=== PATIENT | male | born 1975 | race Two or more races ===

== ENCOUNTER 2022-12-05 12:11 | Emergency (ER) | payer BC, OTHER ==
[~2022-12-05] VITALS: Ht 162.6 cm; Wt 96.4 kg
[2022-12-05 12:25] VITALS: BP 139/96
[2022-12-05] MEDS ORDERED: NEOMYCIN-BACITRACIN-POLYM UNITDOSE PKG TOP OINT TOP ONE (14:15)
== END 2022-12-05 14:29 | disposition home or self-care (01) ==
LOC: ER 12:11
DX: S46.912A Strain of unspecified muscle, fascia and tendon at shoulder and upper arm level, left arm, initial encounter (principal); S66.912A Strain of unspecified muscle, fascia and tendon at wrist and hand level, left hand, initial encounter; S66.812A Strain of other specified muscles, fascia and tendons at wrist and hand level, left hand, initial encounter; R07.89 Other chest pain; V49.49XA Driver injured in collision with other motor vehicles in traffic accident, initial encounter; Y93.89 Activity, other specified; Y92.411 Interstate highway as the place of occurrence of the external cause; Y99.8 Other external cause status
CPT/HCPCS: 71045; 73030; 73080; 73130

== ENCOUNTER 2024-02-11 09:47 | Inpatient (IN) | payer BC, OTHER ==
[~2024-02-11] VITALS: Ht 167.6 cm; Wt 96.0 kg
[~2024-02-11 09:47] MED LIST: METO-289 PO; PANT40TA2 PO
[2024-02-11 11:29] LABS: Basophils # (auto) 0 10 ^3/uL (0-0.2); Basophils % (auto) 0.5 % (0.0-2.0); Eosinophils # (auto) 0.2 10 ^3/uL (0-0.8); Eosinophils % (auto) 2.6 % (0.0-7.0); Hemoglobin 15.1 g/dL (13.5-17.5); Lymphocytes # (auto) 2.1 10 ^3/uL (0.4-5.4); Mean Corpuscular Hemoglobin 29.3 pg (28.0-32.0); Mean Corpuscular Hgb Conc. 33.6 g/dL (32.0-36.0); Mean Corpuscular Volume 87.2 fL (80.0-100.0); Monocytes # (auto) 0.6 10 ^3/uL (0-1.3); Monocytes % (auto) 8.3 % (0.0-12.0); Neutrophils # (auto) 4.7 10 ^3/uL (1.6-8.6); Neutrophils % (auto) 61.6 % (37.0-80.0); Nucleated Red Blood Cells % 0.1 %; Red Blood Cells 5.16 10^6/uL (4.5-5.90); Red Cell Distribution Width 16.4 % (11.8-14.3); White Blood Cell 7.6 10^3/uL (4.4-10.8)
[2024-02-11 11:40] LABS: Chloride 112 mmol/L (98-107); Sodium 138 mmol/L (136-145)
[2024-02-11 11:41] LABS: Anion Gap 5 (5-15); Carbon Dioxide 21 mmol/L (20-30)
[2024-02-11 11:42] LABS: Calcium 9.9 mg/dL (8.5-10.1)
[2024-02-11 11:46] LABS: Glucose 129 mg/dL (74-106)
[2024-02-11 11:47] LABS: BUN/Creatinine Ratio 16.7 (10.0-20.0); Blood Urea Nitrogen 15 mg/dL (9-23)
[2024-02-11 11:51] LABS: INR 1.06 (0.9-1.15); Partial Thromboplastin Time 26.5 SEC (24.5-34.5); Prothrombin Time 11.2 sec (9.3-11.8)
[2024-02-11] MEDS ORDERED: MORPHINE SULFATE INJ 2 MG/ml SYRG IV PRN ×2 (14:30)
[2024-02-11] MEDS ORDERED: DEXTROSE (50%) 50ML SYRG IV PRN (14:30)
[2024-02-11] MEDS ORDERED: NITROGLYCERIN 0.4 MG SL TAB SL PRN (14:30)
[2024-02-11] MEDS ORDERED: DOCUSATE SOD 100 MG CAP PO PRN (14:30)
[2024-02-11] MEDS ORDERED: ONDANSETRON HCL 4 MG/2 ML VIAL IV PRN (14:30)
[2024-02-11] MEDS: SODIUM CHLORIDE 0.9% 1,000 ML IV SCH (14:30)
[2024-02-11] MEDS: ACCU-CHEK COMFORT CURVE STRIP VI SCH (17:00)
[2024-02-11] MEDS: InsuLIN REG 1unit/0.01ml Soln (100units/ml) SC SCH ×2 (17:00→22:00)
[2024-02-11] MEDS: PANTOPRAZOLE 40 MG/10 ML VIAL INJ IV ONE (17:45)
[2024-02-11 18:45] LABS: Basophils # (auto) 0 10 ^3/uL (0-0.2); Basophils % (auto) 0.4 % (0.0-2.0); Eosinophils # (auto) 0.2 10 ^3/uL (0-0.8); Eosinophils % (auto) 2.5 % (0.0-7.0); Hematocrit 44.9 % (41.0-53.0); Lymphocytes # (auto) 2.4 10 ^3/uL (0.4-5.4); Lymphocytes % (auto) 32.8 % (10.0-50.0); Mean Corpuscular Hemoglobin 29.2 pg (28.0-32.0); Mean Corpuscular Hgb Conc. 33.4 g/dL (32.0-36.0); Mean Corpuscular Volume 87.5 fL (80.0-100.0); Monocytes # (auto) 0.8 10 ^3/uL (0-1.3); Monocytes % (auto) 10.2 % (0.0-12.0); Neutrophils % (auto) 54.1 % (37.0-80.0); Nucleated Red Blood Cells % 0.3 %; Red Blood Cells 5.13 10^6/uL (4.5-5.90); Red Cell Distribution Width 16.5 % (11.8-14.3); White Blood Cell 7.4 10^3/uL (4.4-10.8)
[2024-02-11 21:00] VITALS: BP 133/86; PULSE 67; RESP 18; TEMP 98.4; O2SAT 97
[2024-02-11 22:10] VITALS: BP 138/90; PULSE 65; RESP 20; TEMP 98; O2SAT 98
[2024-02-11] MEDS: PANTOPRAZOLE 40 MG/10 ML VIAL INJ IV SCH (23:44)
[2024-02-12] VITALS (9 sets, daily range): BP systolic 126–147; BP diastolic 85–95; PULSE 59–82; RESP 16–20; TEMP 97.6–98.2; O2SAT 97–100
[2024-02-12] MEDS ORDERED: ICOS1CAP3 PO (00:46)
[2024-02-12] MEDS ORDERED: EMPA1TAB3 PO (00:46)
[2024-02-12] MEDS ORDERED: FENO145T27 PO (00:46)
[2024-02-12] MEDS ORDERED: ERGO1CAP23 PO (00:46)
[2024-02-12] MEDS ORDERED: ATOR-507 PO (00:46)
[2024-02-12] MEDS ORDERED: INS7030I SC (00:46)
[2024-02-12] MEDS ORDERED: FINE20TA PO (00:46)
[2024-02-12] MEDS ORDERED: ASPI1TAB20 PO (00:46)
[2024-02-12 07:39] LABS: Basophils # (auto) 0 10 ^3/uL (0-0.2); Basophils % (auto) 0.5 % (0.0-2.0); Eosinophils # (auto) 0.2 10 ^3/uL (0-0.8); Eosinophils % (auto) 3.3 % (0.0-7.0); Hematocrit 41.4 % (41.0-53.0); Hemoglobin 14.3 g/dL (13.5-17.5); Lymphocytes % (auto) 33.4 % (10.0-50.0); Mean Corpuscular Hemoglobin 29.9 pg (28.0-32.0); Mean Corpuscular Hgb Conc. 34.5 g/dL (32.0-36.0); Mean Corpuscular Volume 86.7 fL (80.0-100.0); Monocytes # (auto) 0.6 10 ^3/uL (0-1.3); Monocytes % (auto) 10.5 % (0.0-12.0); Neutrophils # (auto) 3.2 10 ^3/uL (1.6-8.6); Neutrophils % (auto) 52.3 % (37.0-80.0); Red Blood Cells 4.78 10^6/uL (4.5-5.90); Red Cell Distribution Width 15.7 % (11.8-14.3)
[2024-02-12 07:41] LABS: Alanine Aminotransferase 40 U/L (7-40); Albumin 3.8 g/dL (3.2-4.8); Alkaline Phosphatase 28 U/L (46-116); Anion Gap 13 (5-15); Aspartate Aminotransferase 21 U/L (13-40); BUN/Creatinine Ratio 16.3 (10.0-20.0); Bilirubin, Total 0.7 mg/dL (0.2-1.0); Blood Urea Nitrogen 13 mg/dL (9-23); Calcium 9.3 mg/dL (8.7-10.4); Carbon Dioxide 17 mmol/L (20-30); Chloride 109 mmol/L (98-107); Glucose 88 mg/dL (74-106); Potassium 3.5 mmol/L (3.5-5.1); Sodium 139 mmol/L (136-145); Total Protein 6.3 g/dL (5.7-8.2)
[2024-02-12] MEDS ORDERED: SULI200T8 PO (17:45)
[2024-02-12] MEDS ORDERED: GABA-1250 PO (17:45)
[2024-02-12] MEDS ORDERED: TIRZ2.5I SC (17:45)
[2024-02-12] MEDS ORDERED: CYCL-839 PO (17:45)
[2024-02-12] MEDS ORDERED: LIDO1.8P EX (17:45)
[2024-02-12] MEDS: GOLYTELY 4L KIT PO ONE (18:09)
[2024-02-12] MEDS: ATORVASTATIN 20 MG TAB PO SCH (21:41)
[2024-02-12] MEDS ORDERED: METOPROLOL SUCCINATE XL 50 MG TAB PO SCH (22:00)
[2024-02-13] VITALS (7 sets, daily range): BP systolic 140–158; BP diastolic 80–94; PULSE 18–86; RESP 10–18; TEMP 36.9; O2SAT 97–100
[2024-02-13] MEDS: GOLYTELY 4L KIT PO ONE (06:07)
[2024-02-13] MEDS ORDERED: MIDAZOLAM HCL 2MG/2ML 2ml VIAL (1mg/ml) ONE (13:27)
[2024-02-13] MEDS ORDERED: fentaNYL CITRATE 5 ML ONE (13:28)
[2024-02-13] MEDS ORDERED: PROPOFOL 10 MG/ML 20 ML IV ONE (13:36)
[2024-02-13] MEDS: ONDANSETRON HCL 4 MG/2 ML VIAL IV ONE (14:38)
== END 2024-02-13 15:30 | disposition home or self-care (01) | DRG 379 ==
LOC: ER 09:47 → OVERFLOW 14:27 → WEST WING 22:26
PROVIDERS: ADMIT Nurse Practitioner Family; ATTEND Nurse Practitioner Acute Care
PROC: 0DJD8ZZ Inspection of Lower Intestinal Tract, Via Natural or Artificial Opening Endoscopic (ICD-10-PCS; principal; 2024-02-13 13:22)
DX: K62.5 Hemorrhage of anus and rectum (principal); Z96.651 Presence of right artificial knee joint; I10 Essential (primary) hypertension; I25.10 Atherosclerotic heart disease of native coronary artery without angina pectoris; K64.8 Other hemorrhoids; E78.5 Hyperlipidemia, unspecified; E11.9 Type 2 diabetes mellitus without complications; Z88.0 Allergy status to penicillin; Z88.8 Allergy status to other drugs, medicaments and biological substances; Z95.1 Presence of aortocoronary bypass graft; Z83.3 Family history of diabetes mellitus; Z82.49 Family history of ischemic heart disease and other diseases of the circulatory system; Z79.82 Long term (current) use of aspirin
CPT/HCPCS: 36415; 74176; 80048; 80053; 82378; 82962; 83036; 85025; 85610; 85730; 86850; 86900; 86901; 93306; G0378; J1815; J2250; J2470; J2704

== ENCOUNTER 2025-05-10 01:37 | Emergency (ER) | payer BC ==
[~2025-05-10] VITALS: Ht 170.2 cm; Wt 97.2 kg
[~2025-05-10 01:37] MED LIST changes: +ASPI1TAB20 PO; +ATOR-507 PO; +CYCL-839 PO; +EMPA1TAB3 PO; +ERGO1CAP23 PO; +FENO145T27 PO; +FINE20TA PO; +GABA-1250 PO; +ICOS1CAP3 PO; +INS7030I SC; +LIDO1.8P EX; +SULI200T8 PO; +TIRZ2.5I SC
[2025-05-10 01:39] VITALS: BP 148/97; PULSE 82; RESP 18; TEMP 98.1; O2SAT 98
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
== END 2025-05-10 04:48 | disposition home or self-care (01) ==
LOC: ER 01:37
DX: S00.03XA Contusion of scalp, initial encounter (principal); S13.4XXA Sprain of ligaments of cervical spine, initial encounter; E11.9 Type 2 diabetes mellitus without complications; I10 Essential (primary) hypertension; E78.5 Hyperlipidemia, unspecified; F10.90 Alcohol use, unspecified, uncomplicated; Z79.899 Other long term (current) drug therapy; Z79.84 Long term (current) use of oral hypoglycemic drugs; Z79.82 Long term (current) use of aspirin; Z79.85 Long-term (current) use of injectable non-insulin antidiabetic drugs; Z88.0 Allergy status to penicillin; Z95.1 Presence of aortocoronary bypass graft; Z98.890 Other specified postprocedural states; V89.2XXA Person injured in unspecified motor-vehicle accident, traffic, initial encounter; Y93.89 Activity, other specified; Y92.488 Other paved roadways as the place of occurrence of the external cause; Y99.8 Other external cause status; Y90.9 Presence of alcohol in blood, level not specified
CPT/HCPCS: 72125